=== PATIENT | male | born 1995 | race Two or more races ===

== ENCOUNTER 2017-02-08 17:42 | Emergency (ER) | payer SELFPAY ==
[~2017-02-08] VITALS: Ht 175.3 cm; Wt 77.1 kg
[2017-02-08 18:41] VITALS: BP 114/64
[2017-02-08 19:10] VITALS: BP 114/64
--- NOTE | 2017-02-08 21:54 | Emergency Room Report ---
History of Present Illness General Chief Complaint: Allergic Reaction Source: Patient Present Illness Allergies: Coded Allergies: No Known Allergies (Unverified , 02/08/17) Nursing Documentation-H Past Medical History: No Stated History Physical Exam Vital Signs Date Time Temp Pulse Resp B/P (MAP) Pulse Ox O2 Delivery O2 Flow Rate FiO2 02/08/17 17:47 98.1 99 20 131/80 99 Room Air Medical Decision Making ER Course Patient left her with friend/relative Didnt want to wait to be seen I saw patient walk by me - in no acute distress - vitals stable X3 Tried to convince patient to stay, but unhappy with "long wait time." Last Vital Signs Date Time Temp Pulse Resp B/P (MAP) Pulse Ox O2 Delivery O2 Flow Rate FiO2 02/08/17 19:10 98.1 96 21 114/64 99 Room Air Status: improved Disposition: ELOPED Referrals: NOT CHOSEN RAYMUNDO/,REFERRING (PCP) GARRETT CHAVARRIA M.D. Feb 08, 2017 21:54
== END 2017-02-08 19:10 | disposition left against medical advice (07) ==
LOC: EMR 18:45
DX: R06.02 Shortness of breath (principal); Z53.21 Procedure and treatment not carried out due to patient leaving prior to being seen by health care provider
CPT/HCPCS: 99281